=== PATIENT | female | born 1975 | race Caucasian/White ===

== ENCOUNTER 2017-05-05 18:28 | Emergency (ER) | payer OTHER ==
[~2017-05-05] VITALS: Ht 147.3 cm; Wt 77.1 kg
[2017-05-06] MEDS ORDERED: ZANTAC300 MG PO (04:35)
[2017-05-06] MEDS ORDERED: SYNTHROID300 MCG (20:39)
[2017-05-06] MEDS ORDERED: BUTALB-ACETAMI1 EAC2 (20:39)
[2017-05-06] MEDS ORDERED: BUPROPION XL150 MG (20:40)
[2017-05-06] MEDS ORDERED: NORVASC10 MG (20:40)
[2017-05-06] MEDS ORDERED: PROTONIX40 MG (20:40)
[2017-05-06] MEDS ORDERED: COZAAR50 MG (20:41)
[2017-05-06] MEDS ORDERED: PROAIR HFA8.5 GM (20:41)
[2017-05-06] MEDS ORDERED: FLOVENT DISKU250 MCG (20:41)
== END 2017-05-06 04:34 | disposition home or self-care (01) ==
LOC: ER 18:28
DX: K29.70 Gastritis, unspecified, without bleeding (principal); E87.6 Hypokalemia; I10 Essential (primary) hypertension

== ENCOUNTER → 2017-05-06 | Emergency (ER) | payer OTHER ==
[~2017-05-06] VITALS: Ht 147.3 cm; Wt 76.7 kg
[~2017-05-06] MED LIST: BUPROPION XL150 MG; BUTALB-ACETAMI1 EAC2; COZAAR50 MG; FLOVENT DISKU250 MCG; NORVASC10 MG; PROAIR HFA8.5 GM; PROTONIX40 MG; SYNTHROID300 MCG; ZANTAC300 MG PO
== END | disposition home or self-care (01) ==
LOC: ER 19:38
DX: R20.0 Anesthesia of skin (principal); F06.4 Anxiety disorder due to known physiological condition